=== PATIENT | male | born 2000 | race Caucasian/White ===

== ENCOUNTER 2021-07-31 20:59 | Emergency (ER) | payer OTHER ==
[~2021-07-31] VITALS: Ht 167.6 cm; Wt 163.3 kg
[2021-07-31 21:08] VITALS: BP 146/84
[2021-08-01] MEDS ORDERED: PROMETH-CODEIN 65 ML PO (12:19)
[2021-08-01] MEDS ORDERED: VENTOLIN HFA 1818 GM INH (12:19)
[2021-08-01] MEDS ORDERED: PREDNISONE 20 M20 M1 PO (12:19)
[2021-08-01] MEDS ORDERED: ZPAK PO (12:19)
== END 2021-07-31 22:26 | disposition left against medical advice (07) ==
LOC: M.ERS 20:59
DX: R05.9 Cough, unspecified (principal); Z53.21 Procedure and treatment not carried out due to patient leaving prior to being seen by health care provider

== ENCOUNTER 2021-08-01 09:32 | Emergency (ER) | payer OTHER ==
[~2021-08-01] VITALS: Ht 188 cm; Wt 158.8 kg
[2021-08-01] MEDS ORDERED: VENTOLIN HFA 1818 GM INH (12:19)
[2021-08-01] MEDS ORDERED: ZPAK PO (12:19)
[2021-08-01] MEDS ORDERED: PROMETH-CODEIN 65 ML PO (12:19)
[2021-08-01] MEDS ORDERED: PREDNISONE 20 M20 M1 PO (12:19)
[2021-08-01 12:23] VITALS: BP 141/70
== END 2021-08-01 12:27 | disposition home or self-care (01) ==
LOC: M.ERS 09:32
DX: J40 Bronchitis, not specified as acute or chronic (principal); Z90.49 Acquired absence of other specified parts of digestive tract

== ENCOUNTER 2021-09-07 12:38 | Emergency (ER) | payer OTHER ==
[~2021-09-07] VITALS: Ht 185.4 cm; Wt 127.0 kg
[~2021-09-07 12:38] MED LIST: PREDNISONE 20 M20 M1 PO; PROMETH-CODEIN 65 ML PO; VENTOLIN HFA 1818 GM INH; ZPAK PO
[2021-09-07 14:50] LABS: ABSOLUTE EOSINOPHILS 0.1 thou/uL (0.0-0.7); ABSOLUTE LYMPHOCYTES 1.6 thou/uL (0.8-5.3); ABSOLUTE NEUTROPHILS 6.3 thou/uL (1.6-8.1); BASOPHILS 0.5 %; EOSINOPHILS 0.9 %; HEMATOCRIT 41.4 % (42.0-52.0); HEMOGLOBIN 14.2 gm/dL (14.0-18.0); LYMPHOCYTES 17.4 %; MCH 29.9 pg (26.0-34.0); MCHC 34.3 g/dL (28.0-37.0); MCV 87.2 fL (80.0-100.0); MONOCYTES 11.3 %; MPV 7.8 fl. (7.2-11.1); NUCLEATED RBCS 0 /100WBC; PLATELET COUNT* 261 thou/uL (150-400); POLYS 69.9 %; RBC 4.75 mil/uL (4.50-6.00)
[2021-09-07 15:00] LABS: CALCIUM 8.7 mg/dL (8.5-10.1); POTASSIUM 4.4 mmol/L (3.5-5.1)
[2021-09-07 15:11] LABS: ALBUMIN 3.5 g/dL (3.4-5.0); TOTAL BILIRUBIN 0.3 mg/dL (<0.1-1.0); TOTAL PROTEIN 7.5 g/dL (6.4-8.2)
[2021-09-07] MEDS ORDERED: TESSALON PERLE100 MG PO (15:15)
[2021-09-07] MEDS ORDERED: MEDROLDOSEPACK PO (15:15)
[2021-09-07] MEDS ORDERED: PROAIR HFA8.5 GM INH (15:15)
[2021-09-07 15:20] VITALS: BP 150/93
--- NOTE | 2021-09-07 15:56 | EKG ---
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 : 2000 Requested By: Heriberto Mccormick Order Number: [id number] MD: Dereck Salvador Measurements Intervals [place] Rate: 113 P: 40 MS: 134 QRS: 19 QRSD: 97 T: 32 QT: 298 QTc: 409 Interpretive Statements Sinus tachycardia Low voltage, precordial leads Minor intraventricular conduction delay of the right type Baseline wander in lead(s) V2,V3 No previous ECG available for comparison Electronically Signed On 09-07-2021 15:55:44 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
== END 2021-09-07 15:20 | disposition home or self-care (01) ==
LOC: M.ERS 12:38
PROVIDERS: Physician Assistant
DX: J20.9 Acute bronchitis, unspecified (principal); Z20.822 Contact with and (suspected) exposure to COVID-19; Z90.49 Acquired absence of other specified parts of digestive tract